=== PATIENT | female | born 1965 | race Caucasian/White ===

== ENCOUNTER 2016-11-24 07:07 | Emergency (ER) | payer MEDICAID ==
[~2016-11-24] VITALS: Ht 157.5 cm; Wt 70.0 kg
[~2016-11-24 07:07] MED LIST: ASPI81TA3 PO; METO-448 PO; SIMV5TAB50 PO
[2016-11-24 07:10] VITALS: Ht 157.5 cm; Wt 70.0 kg
[2016-11-24] MEDS ORDERED: IBUP400T22 PO (07:42)
--- NOTE | 2016-11-24 07:42 | ERA ---
ER Documentation Chief Complaint Date/Time DATE: 11/24/16 TIME: 07:36 Chief Complaint NOLASCO, CHEST WALL PAIN AND LEFT ARM PAIN. STATES "HAVING PROBLEMS AT WORK" HPI This is a 51-year-old otherwise healthy female presenting with a chief complaints of chest pain described as sharp radiating to the arms bilaterally. Symptoms started yesterday and have subsided. Patient has a headache currently. Patient states that the headache is 5 out of 10. Has had a headaches before. Denies thunderclap or worst headache of life. Patient states she was arguing with the boss. Has requested a note for work. Pt denies previous [place]/VTE, crushing-/squeezing-like CP, upper back pain, leg pain/ swelling, fatigue, dyspnea, syncope, irregular heart beat, or epigastric pain. Denies diabetes. Patient's parents had cardiac history in their 60s. Nursing notes have been reviewed and are consistent with history given. ROS All systems reviewed and are negative except as per history of present illness. Medications Home Meds Active Scripts Ibuprofen* (Motrin*) 400 Mg Tab, 400 MG PO Q6, #30 TAB Prov:DEEPAK ALVAREZ PA-C 11/24/16 Simvastatin* (Simvastatin*) 5 Mg Tablet, 10 MG PO QHS, #30 TAB Prov:RODY GOTTLIEB MD 03/04/16 Metoprolol Tartrate* (Lopressor*) 25 Mg Tab, 25 MG PO BID, #60 TAB Prov:RODY GOTTLIEB MD 03/04/16 Aspirin (Aspirin) 81 Mg Chew, 81 MG PO DAILY, #30 TAB Prov:RODY GOTTLIEB MD 03/04/16 Allergies Allergies: Coded Allergies: No Known Drug Allergies (Verified Allergy, Unknown, 03/03/16) PMhx/Soc History of Surgery: Yes (C section, gallbladder surgery) Anesthesia Reaction: Yes (Per pt: nausea) Hx Neurological Disorder: No Hx Respiratory Disorders: Yes (Asthma x6 mo) Hx Cardiac Disorders: Yes (HTN) Hx Psychiatric Problems: No Hx Miscellaneous Medical Probl: No Hx Alcohol Use: No Hx Substance Use: No Hx Tobacco Use: No Smoking Status: Never smoker Physical Exam Vitals Vital Signs Date Time Temp Pulse Resp B/P Pulse Ox O2 Delivery O2 Flow Rate FiO2 11/24/16 07:10 97.9 82 18 168/80 99 Physical Exam Const: Overweight Ukrainian-speaking 51-year-old female in no acute distress sitting on the gurney on initial presentation. Head: Normocephalic, Atraumatic. Eyes: Non-injected; No discharge or foreign body. EOMI and WILLIAM bilaterally. Ears: Normal External Ears, EACs clear, TM normal bilaterally without erythema. Nose: Normal external nose; no discharge, septal deviation, or sinus tenderness. Oral: No oral edema visualized. Mucous membranes moist and pink. Neck: No cervical lymphadenopathy, masses or goiter palpated. Trachea midline. Supple ~ No meningismus. Pulm: Good air movement in upper and lower respiratory tracts. No dyspnea, stridor, tripoding or drooling. Clear to auscultation bilaterally. Cardio: Regular rate and rhythm; No murmurs, gallops or rubs auscultated. No JVD grossly observed. Radial and posterior tibial pulses 2+ bilaterally. No cyanosis. Capillary refill less than 2 seconds. Abd: Soft, non tender, non distended. No guarding, masses. Normal bowel sounds. No McBurney's point tenderness. MS: Normal motor strength, normal tone with gross examination. Skin: No petechiae or rashes. No ulcer, induration, jaundice. Good turgor. Back: No midline, flank or CVA tenderness. Ext: No edema or palpable cord. Normal movement of all extremities grossly observed. Neur: Awake, alert and oriented x3. Neurovascularly intact bilaterally. Psych: Normal Mood and Affect. Procedures/MDM The patient was evaluated and worked up for atypical chest pain and headache as described in the history and physical exam. The workup included EKG which was read by my attending as unremarkable with normal sinus rhythm, normal axis, no ST elevation or depression, or T-wave abnormalities. The current most likely diagnosis is atypical chest pain secondary to stress and tension type headache. Treatment plan will thus include outpatient therapy with ibuprofen 400 mg as needed.m At this time I do not suspect the chest pain to be due to an acute coronary syndrome, pericarditis, aortic dissection, pulmonary embolism, subarachnoid hemorrhage or other intracranial bleed, pneumothorax, esophageal tear/rupture, pneumonia or pancreatitis. I have spoke with the patient regarding their condition and future management. They have verbally responded that they understand their status and treatment plan. The patients vitals are stable, and their current condition is appropriate for discharge. The patient will be given discharge instructions with return precautions. Departure Diagnosis: Primary Impression: Headache Qualified Code: G44.209 - Acute non intractable tension-type headache Additional Impression: Atypical chest pain Condition: Stable Additional Instructions: Follow up with your PCP within the next 1-3 days for a more thorough evaluation and a possible referral to a specialist. Return the the emergency department immediately if symptoms worsen or change. If you have any questions regarding medications, ask your pharmacist or us before you leave. If any adverse reactions occur while taking your medications, discontinue the treatment and return to the emergency department immediately. Take your medications as directed, and complete the entire course of treatment. DEEPAK ALVAREZ PA-C Nov 24, 2016 07:42
== END 2016-11-24 07:54 | disposition home or self-care (01) ==
LOC: FTE 07:07
DX: G44.209 Tension-type headache, unspecified, not intractable (principal); J45.909 Unspecified asthma, uncomplicated; I10 Essential (primary) hypertension; Z79.82 Long term (current) use of aspirin
CPT/HCPCS: 93005; 99283

== ENCOUNTER 2017-01-25 06:18 | Emergency (ER) | payer MEDICAID ==
[~2017-01-25] VITALS: Ht 157.5 cm; Wt 72.0 kg
[~2017-01-25 06:18] MED LIST changes: +IBUP400T22 PO
[2017-01-25 06:23] VITALS: Ht 157.5 cm; Wt 72.0 kg
[2017-01-25] MEDS ORDERED: ONDANSETRON 4 MG INJ IV STA (06:31)
[2017-01-25] MEDS ORDERED: morphine 4 MG/ML VIAL IV STA (06:31)
[2017-01-25 07:02] LABS: BASOPHILS % 0.7 % (0.0-2.0); EOSINOPHILS # 0.3 10^3/ul (0.0-0.5); EOSINOPHILS % 5.4 % (0.0-7.0); HEMATOCRIT 39.2 % (37.0-47.0); HEMOGLOBIN 13.1 g/dl (12.0-16.0); LYMPHOCYTES % 33.3 % (15.0-51.0); MEAN CORPUSCULAR HEMOGLOBIN 30.6 pg (29.0-33.0); MEAN CORPUSCULAR HGB CONC 33.4 g/dl (32.0-37.0); MEAN CORPUSCULAR VOLUME 91.6 fl (82.0-101.0); MEAN PLATELET VOLUME 9.9 fl (7.4-10.4); MONOCYTE # 0.4 10^3/ul (0.3-0.9); MONOCYTES % 7.2 % (0.0-11.0); NEUTROPHIL # 3.3 10^3/ul (1.6-7.5); NEUTROPHILS % 53.2 % (39.0-77.0); PLATELET COUNT 287 10^3/UL (140-415); RED BLOOD COUNT 4.28 10^6/ul (4.20-5.40); RED CELL DISTRIBUTION WIDTH 12.2 % (11.5-14.5); WHITE BLOOD COUNT 6.1 10^3/ul (4.8-10.8)
[2017-01-25 07:05] LABS: ADD UMIC NO; UR ASCORBIC ACID 20 mg/dL (NEGATIVE); UR BILIRUBIN (Dip) NEGATIVE (NEGATIVE); UR BLOOD (Dip) NEGATIVE (NEGATIVE); UR CLARITY CLEAR (CLEAR); UR COLOR YELLOW (YELLOW); UR GLUCOSE (Dip) NEGATIVE (NEGATIVE); UR KETONES (Dip) NEGATIVE (NEGATIVE); UR LEUKOCYTE ESTERASE (Dip) NEGATIVE Leu/ul (NEGATIVE); UR NITRITE (Dip) NEGATIVE (NEGATIVE); UR SPECIFIC GRAVITY (Dip) 1.016 (1.003-1.030); UR TOTAL PROTEIN (Dip) NEGATIVE (NEGATIVE); UR UROBILINOGEN (Dip) NEGATIVE (NEGATIVE)
[2017-01-25 07:37] LABS: ALANINE AMINOTRANSFERASE 54 IU/L (13-69); ALBUMIN 4.6 g/dl (3.3-4.9); ALBUMIN/GLOBULIN RATIO 1.31; ALKALINE PHOSPHATASE 72 IU/L (42-121); ANION GAP 16 (8-16); ASPARTATE AMINO TRANSFERASE 38 IU/L (15-46); BILIRUBIN,INDIRECT 0.8 mg/dl (0-1.1); BILIRUBIN,TOTAL 0.8 mg/dl (0.2-1.3); BLOOD UREA NITROGEN 16 mg/dl (7-20); CARBON DIOXIDE 26 mmol/L (21-31); CHLORIDE 105 mmol/L (97-110); CREATININE 0.57 mg/dl (0.44-1.00); GLUCOSE 99 mg/dl (70-220); POTASSIUM 4.4 mmol/L (3.5-5.1); SODIUM 143 mmol/L (135-144); TOTAL PROTEIN 8.1 g/dl (6.1-8.1)
[2017-01-25 07:38] LABS: CALCIUM 9.7 mg/dl (8.4-10.2)
[2017-01-25 07:52] LABS: TROPONIN-I < 0.012 ng/ml (0.00-0.12)
--- NOTE | 2017-01-25 08:35 | RADRPT ---
PROCEDURE: CT Abdomen and pelvis without contrast. CLINICAL INDICATION: Abdominal pain TECHNIQUE: CT scan of the abdomen and pelvis without contrast was performed on a multidetector hig h-resolution CT scan. . Coronal and sagittal reformatted images were obtained from the [facility] e images. Standard CT scan of the abdomen pelvis without contrast protocols were performed. The total exam CTDI equals 14.72 mGy and the total exam DLP equals 893.3 mGy-cm. One or more of the following dose reduction techniques were used: - Automated exposure control. - Adjustment of the mA and/or kV according to patient size. Use of iterative reconstruction technique. COMPARISON: None. FINDINGS: The kidneys are normal in size without calcified renal calculi hydronephrosis or intra renal masses bilaterally. The left ureter and urinary bladder are unremarkable. Note that the mid to proximal rig ht ureter is minimally prominent and the distal left ureter is severely dilated extending to the lev el of the left ureteral vesicle junction. No calcified calculi are demonstrated. Uncertain as etiolo gy this finding and recommend clinical correlation consideration of retrograde pyelography if clinic ally indicated. The uterus is N I. And there are calcifications within the anterior uterus likely calcified leiomyom a. No evidence of adnexal masses. The liver spleen pancreas and adrenal glands are unremarkable. The gallbladder is not visualized. Th is may be due to previous cholecystectomy though there is no surgical clips present. No evidence of biliary ductal dilation. Negative for intra-abdominal free air, free fluid, abscesses or lymphadenopathy. The stomach, small bowel, large bowel and appendix are unremarkable. Lung bases are unremarkable. The abdominal pelvic hough unremarkable. Aorta is unremarkable. Degener ative changes of the lower lumbar spine without acute osseous findings or osteoblastic/osteolytic le sions. IMPRESSION: 1. No evidence of calcified urinary calculi or intra renal masses bilaterally. Note that the mid to proximal right ureter is minimally prominent and the distal left ureter is severely dilated extendi ng to the level of the ureterovesical junction without calcified ureteral calculi. Uncertain as etio logy this finding and recommend clinical correlation and consideration of retrograde pyelography if clinically indicated. No evidence of hydronephrosis bilaterally. 2. Unremarkable appendix. Negative for gastrointestinal disease. 3. Negative for intra-abdominal free air fluid abscesses or lymphadenopathy. RPTAT:AAJJ Annmarie Kaiser Physician Date Time Electronically viewed and signed by Annmarie Kaiser Physician on 01/25/2017 08:35 /
[2017-01-25] MEDS ORDERED: IBUP-1542 PO (08:38)
[2017-01-25] MEDS ORDERED: HYDR-902 PO (08:38)
[2017-01-25] MEDS ORDERED: ONDA4TAB14 PO (08:38)
--- NOTE | 2017-01-25 08:39 | ERD ---
ER Documentation Chief Complaint Date/Time DATE: 01/25/17 TIME: 08:39 Chief Complaint abd pain, denies N/V HPI Patient is a 51-year-old female with hypertension who presents with abdominal pain. The patient has right upper quadrant abdominal pain which is sharp in nature over the past 4 days. It has been worsening and the pain is constant. She tried Tylenol on Tuesday. She has had nausea but no vomiting. She has no fevers. She does not currently have a primary doctor. ROS All systems reviewed and are negative except as per history of present illness. Medications Home Meds Active Scripts Ondansetron (Ondansetron Odt) 4 Mg Tab.rapdis, 4 MG PO Q6H Y for NAUSEA AND/OR VOMITING, #30 TAB Prov:PACO WORKMAN MD 01/25/17 Hydrocodone/Acetaminophen ([place] 10-325 Tablet) 1 Each Tablet, 1 TAB PO Q6H Y for PAIN, #7 TAB Prov:PACO WORKMAN MD 01/25/17 Ibuprofen* (Motrin*) 600 Mg Tab, 600 MG PO Q6H Y for PAIN AND OR ELEVATED TEMP, #30 TAB Prov:PACO WORKMAN MD 01/25/17 Ibuprofen* (Motrin*) 400 Mg Tab, 400 MG PO Q6, #30 TAB Prov:DEEPAK ALVAREZ PA-C 11/24/16 Simvastatin* (Simvastatin*) 5 Mg Tablet, 10 MG PO QHS, #30 TAB Prov:RODY GOTTLIEB MD 03/04/16 Metoprolol Tartrate* (Lopressor*) 25 Mg Tab, 25 MG PO BID, #60 TAB Prov:RODY GOTTLIEB MD 03/04/16 Aspirin (Aspirin) 81 Mg Chew, 81 MG PO DAILY, #30 TAB Prov:RODY GOTTLIEB MD 03/04/16 Allergies Allergies: Coded Allergies: No Known Drug Allergies (Verified Allergy, Unknown, 03/03/16) PMhx/Soc History of Surgery: Yes (C section, gallbladder surgery) Anesthesia Reaction: Yes (Per pt: nausea) Hx Neurological Disorder: No Hx Respiratory Disorders: Yes (Asthma x6 mo) Hx Cardiac Disorders: Yes (HTN) Hx Psychiatric Problems: No Hx Miscellaneous Medical Probl: No Hx Alcohol Use: No Hx Substance Use: No Hx Tobacco Use: No Smoking Status: Never smoker FmHx Family History: No diabetes Physical Exam Vitals Vital Signs Date Time Temp Pulse Resp B/P Pulse Ox O2 Delivery O2 Flow Rate FiO2 01/25/17 09:05 98.6 78 17 141/78 99 Room Air 01/25/17 06:56 89 16 118/57 97 Room Air 01/25/17 06:23 98.3 84 20 163/81 99 Physical Exam Const: Moderate distress secondary to pain Head: Atraumatic Eyes: Normal Conjunctiva ENT: Normal External Ears, Nose and Mouth. Neck: Full range of motion..~ No meningismus. Resp: Clear to auscultation bilaterally Cardio: Regular rate and rhythm, no murmurs Abd: Soft, right upper quadrant tenderness to palpation without rebound or guarding Skin: No petechiae or rashes Back: No midline or flank tenderness Ext: No cyanosis, or edema Neur: Awake and alert Psych: Normal Mood and Affect Result Diagram: 01/25/1748 01/25/1748 Results 24 hrs Laboratory Tests Test 01/25/17 06:34 01/25/17 06:48 Urine Color YELLOW Urine Clarity CLEAR Urine pH 5.0 Urine Specific [place] 1.016 Urine Ketones NEGATIVEmg/dL Urine Nitrite NEGATIVEmg/dL Urine Bilirubin NEGATIVEmg/dL Urine Urobilinogen NEGATIVEmg/dL Urine Leukocyte Esterase NEGATIVELeu/ul Urine Hemoglobin NEGATIVEmg/dL Urine Glucose NEGATIVEmg/dL Urine Total Protein NEGATIVEmg/dl White Blood Count 6.110^3/ul Red Blood Count 4.2810^6/ul Hemoglobin 13.1g/dl Hematocrit 39.2% Mean Corpuscular Volume 91.6fl Mean Corpuscular Hemoglobin 30.6pg Mean Corpuscular Hemoglobin Concent 33.4g/dl Red Cell Distribution Width 12.2% Platelet Count 94665^3/UL Mean Platelet Volume 9.9fl Neutrophils % 53.2% Lymphocytes % 33.3% Monocytes % 7.2% Eosinophils % 5.4% Basophils % 0.7% Nucleated Red Blood Cells % 0.0/100WBC Neutrophils # 3.310^3/ul Lymphocytes # 2.010^3/ul Monocytes # 0.410^3/ul Eosinophils # 0.310^3/ul Basophils # 0.010^3/ul Nucleated Red Blood Cells # 0.010^3/ul Sodium Level 143mmol/L Potassium Level 4.4mmol/L Chloride Level 105mmol/L Carbon Dioxide Level 26mmol/L Anion Gap 16 Blood Urea Nitrogen 16mg/dl Creatinine 0.57mg/dl Glucose Level 99mg/dl Calcium Level 9.7mg/dl Total Bilirubin 0.8mg/dl Direct Bilirubin 0.00mg/dl Indirect Bilirubin 0.8mg/dl Aspartate Amino Transf (AST/SGOT) 38IU/L Alanine Aminotransferase (ALT/SGPT) 54IU/L Alkaline Phosphatase 72IU/L Troponin I < 0.012ng/ml Total Protein 8.1g/dl Albumin 4.6g/dl Globulin 3.50g/dl Albumin/Globulin Ratio 1.31 Lipase 121U/L Current Medications Medications (Trade) Dose Ordered Sig/Mando Route PRN Reason Start Time Stop Time Status Last Admin Dose Admin Morphine Sulfate (morphine) 4 mg ONCE STAT IV 01/25/17 06:31 01/25/17 06:32 DC 01/25/17 06:42 Ondansetron HCl (Zofran Inj) 4 mg ONCE STAT IV 01/25/17 06:31 01/25/17 06:32 DC 01/25/17 06:41 Procedures/MDM EKG read by me: Rate/Rhythm: Regular rate and rhythm at a rate of 82 Intervals: Normal Impression: No evidence of ischemia or arrhythmia CT abdomen pelvis shows no surgical process per radiology. Gallbladder is surgically absent. Patient is a 51-year-old female with hypertension who presents with right upper quadrant abdominal pain. She has already had her gallbladder removed. CT of the abdomen pelvis shows no signs of surgical process such as obstruction at this time. I doubt cholecystitis, pancreatitis, appendicitis, or bowel obstruction. The patient was given pain medication and Zofran. I believe outpatient management is appropriate. There is no sign of acute coronary syndrome as her EKG and troponin are normal. The patient will need to follow- up with the local clinics within 24 hours for evaluation as she does not currently have a primary doctor. She will be given a prescription for ibuprofen , [place], and Zofran. Departure Diagnosis: Primary Impression: Abdominal pain Abdominal location: right upper quadrant Qualified Code: R10.11 - Right upper quadrant abdominal pain Condition: Fair Patient Instructions: Abdominal Pain Ref[facility] Usted se buckley hecho un examen mdico de control que le indica que no est en karissa condicin que requiera tratamiento urgente en el Departamento de Emergencia. Un estudio ms profundo y el tratamiento de plasencia condicin pueden esperar sin ningn riesgo hasta que usted sea atendida/o en el consultorio de plasencia mdico o karissa cl anne. Es responsabilidad suya arreglar karissa asmita para el seguimiento del booker. MANEJO DE CONDICIONES NO URGENTES EN EL FUTURO 1) Si usted tiene un mdico de atencin primaria: Usted debera llamar a plasencia mdico de atencin primaria antes de venir al departamento de emergencia. Despus de las horas de consultorio, plasencia doctor o plasencia asociado/a est disponible por telfono. El mdico o enfermero de ronny en el servicio telefnico puede asesorarle por sherry medio para atender el problema, o booker contrario se puede programar karissa asmita. 2) Si usted no tiene un mdico de atencin primaria: Llame al mdico o clnica de referencia que aparece abajo elsy las horas de consultorio para hacer karissa asmita para que le vean. CLINICAS: [facility] [phone] [facility] [phone] [facility] [phone] [facility]. [facility] [phone] [address] [facility] [place] [id number] [phone] [facility]. [phone] [address] Additional Instructions: Llame al doctor MAANA y natalio karissa ASMITA PARA DENTRO DE 1-2 LAN.Dgale a la secretaria que nosotros le instruimos hacer esta asmita.Avise o llame si plasencia condicin se empeora antes de la asmita. Regresa aqui si peor o no mejor. PACO WORKMAN MD Jan 25, 2017 08:39
[2017-01-25 09:05] VITALS: BP 141/78; PULSE 78; RESP 17; TEMP 98.6
== END 2017-01-25 09:06 | disposition home or self-care (01) ==
LOC: E/R 06:18
DX: R10.11 Right upper quadrant pain (principal); I10 Essential (primary) hypertension; J45.909 Unspecified asthma, uncomplicated; R11.0 Nausea; Z79.82 Long term (current) use of aspirin
CPT/HCPCS: 36415; 74176; 80053; 81003; 83690; 84484; 85025; 93005; 96374; 96375; J2270; J2405; Z7502

== ENCOUNTER 2018-04-23 15:57 | Emergency (ER) | payer MEDICAID ==
[~2018-04-23] VITALS: Ht 167.6 cm; Wt 70.6 kg
[~2018-04-23 15:57] MED LIST changes: +ASPI-831 PO; -ASPI81TA3 PO; +HYDR-3980 PO; +IBUP-1542 PO; +IBUP-1561 PO; -IBUP400T22 PO; +ONDA4TAB14 PO
[2018-04-23 16:00] VITALS: Ht 167.6 cm; Wt 70.6 kg
[2018-04-23] MEDS ORDERED: KETOROLAC 30 MG INJ IM STA (16:40)
[2018-04-23] MEDS ORDERED: PENI500T PO (18:09)
[2018-04-23] MEDS ORDERED: IBUP-1542 PO (18:09)
[2018-04-23] MEDS ORDERED: AMLO-145 PO (18:09)
[2018-04-23] MEDS ORDERED: TYL500 PO (18:09)
[2018-04-23 18:21] VITALS: BP 156/94; PULSE 99; RESP 20
--- NOTE | 2018-04-24 01:55 | ERD ---
ER Documentation Chief Complaint Chief Complaint Complains of a sore throat HPI 52-year-old female presents for sore throat times 1 day. She has associated fever. She states that she has a mild cough intermittently. She does have history of hypertension and supposed to be on amlodipine however she states that she ran out of the medication. She has not tried any medications for her symptoms. She denies chest pain or shortness of breath. Denies abdominal pain, nausea, vomiting. ROS All systems reviewed and are negative except as per history of present illness. Medications Home Meds Active Scripts Ibuprofen* (Motrin*) 600 Mg Tab, 600 MG PO Q6H PRN for FEVER GREATER THAN 100.6, #30 TAB Prov:DEEPAK UPTON DO 04/23/18 Amlodipine Besylate* (Amlodipine Besylate*) 5 Mg Tablet, 5 MG PO DAILY for HTN, #30 TAB Prov:DEEPAK UPTON DO 04/23/18 Acetaminophen* (Tylenol*) 500 Mg Tab, 500 MG PO Q4H PRN for MILD PAIN LEVEL 1-3, #30 TAB Prov:DEEPAK UPTON DO 04/23/18 Penicillin V Potassium* (Penicillin V K*) 500 Mg Tab, 500 MG PO BID for 10 Days, #20 TAB Prov:DEEPAK UPTON DO 04/23/18 Ondansetron (Ondansetron Odt) 4 Mg Tab.rapdis, 4 MG PO Q6H PRN for NAUSEA AND/OR VOMITING, #30 TAB Prov:PACO WORKMAN MD 01/25/17 Hydrocodone/Acetaminophen ([place] 10-325 Tablet) 1 Each Tablet, 1 TAB PO Q6H PRN for PAIN, #7 TAB Prov:PACO WORKMAN MD 01/25/17 Ibuprofen* (Motrin*) 600 Mg Tab, 600 MG PO Q6H PRN for PAIN AND OR ELEVATED TEMP, #30 TAB Prov:PACO WORKMAN MD 01/25/17 Ibuprofen* (Motrin*) 400 Mg Tab, 400 MG PO Q6, #30 TAB Prov:DEEPAK ALVAREZ PA-C 11/24/16 Simvastatin* (Simvastatin*) 5 Mg Tablet, 10 MG PO QHS, #30 TAB Prov:RODY GOTTLIEB MD 03/04/16 Metoprolol Tartrate* (Lopressor*) 25 Mg Tab, 25 MG PO BID, #60 TAB Prov:RODY GOTTLIEB MD 03/04/16 Aspirin (Aspirin) 81 Mg Chew, 81 MG PO DAILY, #30 TAB Prov:RODY GOTTLIEB MD 03/04/16 Allergies Allergies: Coded Allergies: No Known Drug Allergies (Verified Allergy, Unknown, 04/23/18) PMhx/Soc History of Surgery: Yes (C section, gallbladder surgery) Anesthesia Reaction: Yes (Per pt: nausea) Hx Neurological Disorder: No Hx Respiratory Disorders: Yes (Asthma x6 mo) Hx Cardiac Disorders: Yes (HTN) Hx Psychiatric Problems: No Hx Miscellaneous Medical Probl: No Hx Alcohol Use: No Hx Substance Use: No Hx Tobacco Use: No Smoking Status: Never smoker Physical Exam Vitals Vital Signs Date Temp Pulse Resp B/P (MAP) Pulse Ox O2 O2 Flow FiO2 Time Delivery Rate 04/23/18 99.6 99 20 156/94 100 Room Air 18:21 (114) 04/23/18 101.5 55 20 173/97 100 16:00 (122) Physical Exam Const: No acute distress Head: Atraumatic Eyes: Normal Conjunctiva ENT: Normal External Ears, Nose, there is bilateral tonsillar swelling noted. Neck: Full range of motion. No meningismus. Resp: Clear to auscultation bilaterally Cardio: Regular rate and rhythm, no murmurs Skin: No petechiae or rashes Ext: No cyanosis, or edema Neur: Awake and alert Psych: Normal Mood and Affect Results 24 hrs Current Medications Medications Dose Sig/Mando Start Time Status Last (Trade) Ordered Route PRN Stop Time Admin Dose Reason Admin Ketorolac 30 mg ONCE STAT 04/23/18 DC 04/23/18 Tromethamine IM 16:40 17:06 (Toradol) 04/23/18 16:41 Procedures/MDM Medical Decision Making: Differential diagnosis includes but not limited to upper respiratory infection, pneumonia, sepsis. Patient appeared well on physical examination, nontoxic appearing. Chest x-ray was unremarkable. There is low suspicion for pneumonia, sepsis. Patient had 3 of the 4 Centor criteria. Rapid strep test was negative however given high suspicion patient will be started on penicillin. Patient also given prescription for Motrin and Tylenol. Patient was also given refill of her amlodipine. Patient is advised regarding the importance of follow-up with PCP to control high blood pressure. Patient agrees with plan of care. Patient advised to follow up with PCP in 1-2 days. Patient advised to return to ED for new or worsening symptoms. Patient stable on discharge from the ED. Disclaimer: Inadvertent spelling and grammatical errors are likely due to EHR/dictation software use and do not reflect on the overall quality of patient care. Also, please note that the electronic time recorded on this note does not necessarily reflect the actual time of the patient encounter. Departure Diagnosis: Primary Impression: Pharyngitis Condition: Fair Patient Instructions: Pharyngitis, Strep (Presumed) Referrals: [facility] YOU HAVE RECEIVED A MEDICAL SCREENING EXAM AND THE RESULTS INDICATE THAT YOU DO NOT HAVE A CONDITION THAT REQUIRES URGENT TREATMENT IN THE EMERGENCY DEPARTMENT. FURTHER EVALUATION AND TREATMENT OF YOUR CONDITION CAN WAIT UNTIL YOU ARE SEEN IN YOUR DOCTORS OFFICE WITHIN THE NEXT 1-2 DAYS. IT IS YOUR RESPONSIBILITY TO MAKE AN APPOINTMENT FOR FOLOW-UP CARE. IF YOU HAVE A PRIMARY DOCTOR --you should call your primary doctor and schedule an appointment IF YOU DO NOT HAVE A PRIMARY DOCTOR YOU CAN CALL OUR PHYSICIAN REFERRAL HOTLINE AT IF YOU CAN NOT AFFORD TO SEE A PHYSICIAN YOU CAN CHOSE FROM THE FOLLOWING [facility] [address] [facility]. [facility] [address] [facility] [facility] [address] [facility] [facility] [address] [facility] [facility] [phone] [facility]. [facility]. [address] Additional Instructions: Call your primary care doctor TOMORROW for an appointment during the next 1-2 days.See the doctor sooner or return here if your condition worsens before your appointment time. DEEPAK UPTON DO Apr 24, 2018 01:55
== END 2018-04-23 18:25 | disposition home or self-care (01) ==
LOC: FTE 15:57
DX: J02.9 Acute pharyngitis, unspecified (principal); I10 Essential (primary) hypertension; J45.909 Unspecified asthma, uncomplicated; Z79.82 Long term (current) use of aspirin
CPT/HCPCS: 71046; 87880; 96372; J1885; Z7502